=== PATIENT | male | born 1980 | race Caucasian/White ===

== ENCOUNTER 2022-08-09 19:29 | Emergency (ER) | payer OTHER ==
[2022-08-09] MEDS ORDERED: AMOX TR/POT CLAV 875MG/125MG TABLETS (FP) PO ONE ×2 (19:35)
[2022-08-09] MEDS ORDERED: IBUPROFEN 600 MG TABLET (FP) PO ONE ×2 (19:37→19:39)
[2022-08-09] MEDS ORDERED: AMOX TR/POT CLAV 875MG/125MG TABLETS (FP) ONE (19:40)
[2022-08-09 19:43] VITALS: PULSE 76; RESP 18; TEMP 97.6; BMI 29.0
[2022-08-09 20:10] VITALS: BP 151/93
== END 2022-08-09 20:10 | disposition home or self-care (01) ==
LOC: FER 19:29
DX: S90.221A Contusion of right lesser toe(s) with damage to nail, initial encounter (principal); W22.8XXA Striking against or struck by other objects, initial encounter
CPT/HCPCS: 73660-TC-FY; 99283-25

== ENCOUNTER 2022-12-23 19:33 | Emergency (ER) | payer BC, OTHER ==
[2022-12-23 19:39] VITALS: BP 133/86; PULSE 60; RESP 18; TEMP 97.8; BMI 27.6
[2022-12-23 20:13] LABS: HEMOGLOBIN 16.9 G/dL (11.7-16.9); MCH 30.9 pg (25.7-33.7); MCHC 34.6 g/dl (32.0-35.9); MEAN CELL VOLUME 89.2 fl (80-96); MEAN PLT VOLUME 9.7 fl (7.5-11.1); PLATELET COUNT 183.5 10^3/uL (134-434); RBC 5.49 10^6/uL (4.00-5.60); RDW 13.9 % (11.9-15.9); WHITE BLOOD COUNT 7.1 10^3/uL (4.0-10.8)
[2022-12-23 20:24] LABS: ALBUMIN 4.5 g/dl (3.4-5.0); BLOOD UREA NITROGEN 16.2 mg/dl (7-18); CALCIUM 9.6 mg/dl (8.5-10.1); CREATININE 1.2 mg/dl (0.6-1.3); POTASSIUM 3.8 mmol/L (3.5-5.1); SGOT/AST 24.1 U/L (15-37); TOT PROT 6.6 g/dl (6.4-8.2)
[2022-12-23 20:32] LABS: PLATELET ESTIMATE ADEQUATE
== END 2022-12-23 21:10 | disposition home or self-care (01) ==
LOC: FER 19:33
DX: R07.89 Other chest pain (principal); R06.02 Shortness of breath
CPT/HCPCS: 36415; 71046-TC-FY; 80053; 84484; 85025; 93005; 99285-25